=== PATIENT | female | born 1985 | race African-American/Black ===

== ENCOUNTER 2020-12-17 20:23 | Emergency (ER) | payer OTHER, SELFPAY ==
--- NOTE | ~2020-12-17 | CT_ITS ---
EXAMINATION: CT abdomen pelvis w con EXAM DATE: 12/17/2020 21:56 INDICATION: Abdominal pain. TECHNIQUE: Spiral CT of the abdomen and pelvis was performed following intravenous injection of 100 m L Omnipaque 350. Axial, coronal and sagittal images of the abdomen and pelvis were reviewed. The do se-length product (DLP) for this examination was 721.05 mGy-cm. The exposure was tailored according to patient size (auto mA exposure control), and iterative reconstruction (ASIR) was used as additiona l dose reduction technique. There is no prior study for comparison. FINDINGS: The liver, spleen, adrenal glands and pancreas are unremarkable. Gallbladder is unremarkab le. No biliary obstruction. Portal and splenic veins are patent. Kidneys enhance symmetrically. T here is no hydronephrosis. The uterus is retroverted and morphologically normal. The bladder is u nremarkable. There is no retroperitoneal or pelvic lymphadenopathy. The appendix is normal. The stomach and small bowel are unremarkable. There is expected amount of c olonic stool. No free intraperitoneal gas. The heart is normal in size. There are no pericardial or pleural effusions. The lung bases are unremarkable. Moderate L4-5 disc disease. IMPRESSION: No acute intra-abdominal findings. Reviewed, dictated and finalized at location A. ITE INSPECTOR
[2020-12-17 20:29] VITALS: BP 149/90; PULSE 95; RESP 18; TEMP 36.3; O2SAT 100
[2020-12-17 20:42] LABS: Basophils Percent Auto 0.3 % (0.2-1.2); Eosinophils Absolute Auto 0.1 K/mm3 (0-0.3); Hemoglobin 11.7 g/dL (12.0-15.0); Immature Granulocyte Absolute 0.02 K/mm3 (0.00-0.031); Immature Granulocyte Percent A 0.3 % (0-0.5); Lymphocytes Absolute Auto 4.24 K/mm3 (0.9-3.2); Lymphocytes Percent Auto 53.3 % (18.3-44.2); Mean Corpuscular HGB Conc 33.4 g/dl (32-36); Mean Corpuscular Hemoglobin 30.9 pg (26-34); Mean Corpuscular Volume 92.3 fl (80-100); Mean Platelet Volume 9.7 fl (7.4-10.4); Monocytes Absolute Auto 0.5 K/mm3 (0.1-0.6); Monocytes Percent Auto 5.8 % (2.6-8.5); Neutrophils Absolute Auto 3.1 K/mm3 (1.3-6.7); Neutrophils Percent Auto 39.3 % (45.5-73.1); Platelet Count Result 256 k/mm3 (150-375); Red Blood Count 3.79 M/mm3 (4.2-5.4)
[2020-12-17 20:51] LABS: Alanine Aminotransferase 12 U/L (4-35); Albumin Level 4.3 g/dL (3.5-5.1); Alkaline Phosphatase 68 U/L (38-126); Anion Gap 6 mmol/L (8-16); Aspartate Amino Transferase 25 U/L (14-36); Bilirubin,Total 0.4 mg/dL (0.2-1.3); Blood Urea Nitrogen 7 mg/dL (7-17); Calcium 9.6 mg/dL (8.4-10.2); Carbon Dioxide 30 mmol/L (22-30); Chloride 100 mmol/L (98-107); Estimated CRCL calculation 121 ml/min; Estimated Glomerular Filt Rate > 60; Glucose 99 mg/dL (65-110); Lipase 39 U/L (23-300); Potassium 3.6 mmol/L (3.4-5.0); Sodium 136 mmol/L (137-145)
[2020-12-17 21:05] LABS: Add Urine Microscopic? YES; Appearance Urine Clear (Clear); Bilirubin Urine Negative (Negative); Blood Urine Negative (Negative); Color Urine Straw (Yellow); Glucose Urine UA Negative (Negative); Ketones Urine Negative (Negative); Leukocyte Esterase Ur Negative LEU/UL (Negative); Nitrate Urine Negative (Negative); Protein Urine Negative (Negative); RBC Urine 0-2 /hpf (0-2); Specific Grav Ur 1.009 (1.001-1.035); Squamous Epithelial Cell Urine Rare /hpf (Few); Urobilinogen Urine Negative mg/dL (<2.0); WBC Urine 0-3 /hpf
[2020-12-17] MEDS: SODIUM CHLORIDE 0.9% IV 1,000 ML 999 ML IV CONT (21:17)
[2020-12-17] MEDS: ONDANSETRON INJ 4 MG/2 ML VIAL IV PUSH (21:18)
--- NOTE | 2020-12-17 22:24 | ED.GENADULT ---
HPI - General Adult General Chief complaint: Abdominal Pain Stated complaint: Abdominal pain Time Seen by Provider: 12/17/20 20:45 History of Present Illness HPI narrative: Patient is a 35-year-old female presents to emergency department with chief complaint of abdominal pain. Patient states for the last several days she has been having uncomfortable feeling in her right upper quadrant and also diffusely throughout her abdomen. Patient denies vomiting denies diarrhea reports has had no fevers with this reports that no prior surgical history on her abdomen. Patient reports no changes in her menstrual cycle. Patient reports symptoms are not worsened by anything nor they improved by anything. Related Data Allergies Allergy/AdvReac Type Severity Reaction Status Date / Time No Known Allergies Allergy Verified 12/17/20 20:50 Review of Systems Review of Systems: A 10 system review of systems was completed on the patient and is negative except for what is stated in the HPI. Nursing and ancillary documentation was reviewed. Exam Narrative: GENERAL: Well-appearing, well-nourished, and in no acute distress. HEAD: Normocephalic, atraumatic. EYES: PERRLA and EOMI. ENT: Nares clear, no rhinorrhea or epistaxis. Mucous membranes moist. NECK: Supple. CHEST: Clear to auscultation. No respiratory distress. HEART: Regular rate and rhythm. No murmur heard. Normal peripheral pulses. ABDOMEN: Soft, diffuse mild tenderness, nondistended, normal active bowel sounds. EXTREMITIES: Normal range of motion. No edema. SKIN: Warm, dry, no rash. NEURO: No focal deficits. Alert and oriented x3. PSYCH: Normal mood and affect. Course Vital Signs Vital signs: Vital Signs Temperature 36.3 C L 12/17/20 20:29 Pulse Rate 95 12/17/20 20:29 Respiratory Rate 18 12/17/20 20:29 Blood Pressure 149/90 H 12/17/20 20:29 Pulse Oximetry 100 12/17/20 20:29 Temperature 36.3 C L 12/17/20 20:29 Pulse Rate 95 12/17/20 20:29 Respiratory Rate 18 12/17/20 20:29 Blood Pressure 149/90 H 12/17/20 20:29 Pulse Oximetry 100 12/17/20 20:29 Medical Decision Making Vital Signs Vital Signs: Vital Signs Temperature 36.3 C L 12/17/20 20:29 Pulse Rate 95 12/17/20 20:29 Respiratory Rate 18 12/17/20 20:29 Blood Pressure 149/90 H 12/17/20 20:29 Pulse Oximetry 100 12/17/20 20:29 Temperature 36.3 C L 12/17/20 20:29 Pulse Rate 95 12/17/20 20:29 Respiratory Rate 18 12/17/20 20:29 Blood Pressure 149/90 H 12/17/20 20:29 Pulse Oximetry 100 12/17/20 20:29 Lab Data Result diagrams: 12/17/20 20:33 12/17/20 20:33 Labs: Lab Results 12/17/20 12/17/20 12/17/20 Range/Units 20:33 20:33 20:53 WBC 8.0 (4.5-10.0) K/mm3 RBC 3.79 L (4.2-5.4) M/mm3 Hgb 11.7 L (12.0-15.0) g/dL Hct 35.0 L (37.0-47.0) % MCV 92.3 (80-100) fl MCH 30.9 (26-34) pg MCHC 33.4 (32-36) g/dl RDW 12.0 (11.5-14.5) % Plt Count 256 (150-375) k/mm3 MPV 9.7 (7.4-10.4) fl Immature Gran % (Auto) 0.3 (0-0.5) % Neut % (Auto) 39.3 L (45.5-73.1) % Lymph % (Auto) 53.3 H (18.3-44.2) % [place] % (Auto) 5.8 (2.6-8.5) % Eos % (Auto) 1.0 (0-4.4) % Baso % (Auto) 0.3 (0.2-1.2) % Lymph # (Auto) 4.24 H (0.9-3.2) K/mm3 [place] # (Auto) 0.5 (0.1-0.6) K/mm3 Eos # (Auto) 0.1 (0-0.3) K/mm3 Baso # (Auto) 0.0 (0.0-0.1) K/mm3 Abs Immat Gran (auto) 0.02 (0.00-0.031) K/mm3 Absolute Neuts (auto) 3.1 (1.3-6.7) K/mm3 Absolute Nucleated RBC 0.0 (0.0-0.012) K/mm3 Nucleated RBC % 0.0 (0.0-0.2) % Sodium 136 L (137-145) mmol/L Potassium 3.6 (3.4-5.0) mmol/L Chloride 100 (98-107) mmol/L Carbon Dioxide 30 (22-30) mmol/L Anion Gap 6 L (8-16) mmol/L BUN 7 (7-17) mg/dL Creatinine 0.70 (0.7-1.0) mg/dL Estim Creat Clear Calc 121 ml/min Estimated GFR > 60 (59 - ) Glucose 99 (65-110) mg/dL Calcium
[2020-12-17 22:49] VITALS: BP 140/83; PULSE 88; RESP 18; O2SAT 98
== END 2020-12-17 22:50 | disposition home or self-care (01) ==
PROVIDERS: Emergency Medicine; Emergency Provider Emergency Medicine
DX: R10.84 Generalized abdominal pain (principal)
CPT/HCPCS: 36415; 74177; 80053; 81001; 81025; 83690; 85025; 96361; 96374; 99284; J2405; J7030; Q9967

== ENCOUNTER 2021-04-25 00:08 | Emergency (ER) | payer OTHER, SELFPAY ==
[2021-04-25] VITALS (16 sets, daily range): BP systolic 119–152; BP diastolic 78–100; PULSE 65–91; RESP 12–20; TEMP 36.2–36.4; O2SAT 99–100
--- NOTE | ~2021-04-25 | XR_ITS ---
EXAMINATION: XR chest 2V 04/25/2021 00:32 INDICATION: Tachycardia PROCEDURE: 2 view chest COMPARISON: No prior studies for comparison. FINDINGS: The lungs are clear. The cardiomediastinal silhouette is within normal limits. There are no pleural effusions. There is no pneumothorax suspected. IMPRESSION: 1: NO ACUTE CARDIOPULMONARY DISEASE. Reviewed, dictated and finalized at location A.
--- NOTE | 2021-04-25 00:14 | ECG_ITS ---
Measurements Intervals [place] Rate: 85 P: 56 FL: 146 QRS: 36 QRSD: 80 T: 1 QT: 332 QTc: 397 Interpretive Statements SINUS RHYTHM WITH SINUS ARRHYTHMIA POSSIBLE LEFT ATRIAL ENLARGEMENT [-0.1mV P-WAVE IN V1/V2] NONSPECIFIC T-WAVE ABNORMALITY ABNORMAL ECG NO PREVIOUS ECG AVAILABLE FOR COMPARISON Electronically Signed On 04-25-2021 9:05:31 CDT by Allan Metcalf M.D.
--- NOTE | 2021-04-25 00:29 | PC.NURSE ---
Patient taken to xray.
--- NOTE | 2021-04-25 00:32 | ED.ARRPALP ---
HPI - Arrhythmia/Palpitations General Chief Complaint: Arrhythmia/Palpitations Stated Complaint: pounding in chest x 1 week Time Seen by Provider: 04/25/21 00:13 Source: patient and RN notes reviewed Mode of arrival: ambulatory Limitations: no limitations History of Present Illness HPI narrative: 35-year-old female with no significant past medical history presents to the emergency department for evaluation of 2 days of heart palpitations. Patient states she is also had intermittent aching in her left arm. Patient states he is also had some intermittent headache. Patient states this does occur at rest. Patient denies anything that makes the pain worse. Patient denies any radiation of the pain to her neck or back. Patient states that she does have a history of high blood pressure when she goes to her primary care physician but patient is not currently being treated for hypertension. Patient did take Tylenol for a recent headache and states that has helped with the headache but not with the chest pressure. Patient denies any prior history of CO. Patient denies any prior history of PE or DVT. Patient denies any recent long car rides or plane flights. Patient states she is not currently on control or hormone replacement. Patient denies any lower extremity pain or swelling. Related Data Home Medications Medication Instructions Recorded Confirmed No Home Medications 04/25/21 04/25/21 Allergies Allergy/AdvReac Type Severity Reaction Status Date / Time No Known Allergies Allergy Verified 04/25/21 00:18 Review of Systems Review of Systems: CONSTITUTIONAL: Denies fever, chills, or sweats. EYES: Denies visual changes, redness, or discharge. ENT: Denies rhinorrhea, congestion, sore throat, or otalgia. CARDIOVASCULAR: Chest pressure, palpitations. RESPIRATORY: Denies cough or dyspnea. GASTROINTESTINAL: Denies abdominal pain, nausea, vomiting, or diarrhea. GENITOURINARY: Denies dysuria or hematuria. SKIN: Denies rash or itching. MUSCULOSKELETAL: Ache in her left arm NEUROLOGIC: Intermittent headache but denies any focal numbness or weakness Exam Narrative: APPEARANCE: Well appearing, no pain, no distress, well-nourished. HEAD: normocephalic, atraumatic. EYES: PERRLA/EOMI, conjunctivae clear. NOSE: Normal no drainage NECK: Supple. No adenopathy, no masses. RESPIRATORY: Airway patent, respirations nonlabored. Clear to auscultation bilaterally, no rales, rhonchi, wheezing. CARDIOVASCULAR: Regular rate and rhythm without murmurs rubs or gallops. No reproducible tenderness to palpation ABDOMINAL: Soft, nontender, nondistended, normal bowel sounds MUSCULOSKELETAL: Moves all extremities. Strength/ROM intact, No edema, No calf tenderness. NEURO: Alert. Cranial nerves II through XII intact. Good gait. Good coordination SKIN: Warm, dry. Normal Color Course Course Emergency Course: Patient was treated with 324 mg of aspirin p.o. Patient was also given sublingual nitro. This did help her blood pressure but did not change her chest pressure symptoms. Patient also did develop a subsequent headache from the nitro. Patient's blood pressure did remain improved for the rest of her ER visit after that single dose of nitro. Patient did x-ray that showed no acute cardiopulmonary abnormality. EKG showed normal sinus rhythm with no evidence of acute STEMI. Patient did have negative serial troponins. D-dimer was within normal limits. Patient and family were updated on the results of the work-up. Patient was advised to have close follow-up with her primary care physician in order to determine if she would require further outpatient cardiac testing, meds for hypertension, or a Holter monitor. Patient Liza updated on the reasons to return to the emergency room. All questions and concerns were addressed. Patient was well-appearing at time of discharge Vital Signs Vital signs: Vital Signs Temperature 97.1 F L 04/25/21 00:12 Pulse Rate 91
[2021-04-25 00:40] LABS: Basophils Percent Auto 0.3 % (0.2-1.2); Eosinophils Absolute Auto 0.1 K/mm3 (0-0.3); Eosinophils Percent Auto 1.2 % (0-4.4); Hematocrit 37.7 % (37.0-47.0); Hemoglobin 12.2 g/dL (12.0-15.0); Immature Granulocyte Absolute 0.02 K/mm3 (0.00-0.031); Immature Granulocyte Percent A 0.3 % (0-0.5); Lymphocytes Absolute Auto 3.31 K/mm3 (0.9-3.2); Lymphocytes Percent Auto 51.6 % (18.3-44.2); Mean Corpuscular HGB Conc 32.4 g/dl (32-36); Mean Corpuscular Hemoglobin 30.9 pg (26-34); Mean Corpuscular Volume 95.4 fl (80-100); Mean Platelet Volume 10.1 fl (7.4-10.4); Monocytes Absolute Auto 0.4 K/mm3 (0.1-0.6); Monocytes Percent Auto 5.5 % (2.6-8.5); Neutrophils Absolute Auto 2.6 K/mm3 (1.3-6.7); Neutrophils Percent Auto 41.1 % (45.5-73.1); Platelet Count Result 265 k/mm3 (150-375); Red Blood Count 3.95 M/mm3 (4.2-5.4); Red Cell Distribution Width 12.1 % (11.5-14.5); White Blood Count 6.4 K/mm3 (4.5-10.0)
[2021-04-25 00:48] LABS: D Dimer 0.33 ug/mL (<0.48)
[2021-04-25 00:56] LABS: Alanine Aminotransferase 14 U/L (4-35); Albumin Level 4.4 g/dL (3.5-5.1); Alkaline Phosphatase 78 U/L (38-126); Anion Gap 7 mmol/L (8-16); Aspartate Amino Transferase 34 U/L (14-36); Bilirubin,Total 0.3 mg/dL (0.2-1.3); Blood Urea Nitrogen 6 mg/dL (7-17); Calcium 8.8 mg/dL (8.4-10.2); Carbon Dioxide 25 mmol/L (22-30); Chloride 105 mmol/L (98-107); Estimated CRCL calculation 117 ml/min; Estimated Glomerular Filt Rate > 60; Glucose 108 mg/dL (65-110); Magnesium 1.8 mg/dL (1.6-2.3); Potassium 3.3 mmol/L (3.4-5.0); Sodium 137 mmol/L (137-145)
[2021-04-25] MEDS: NITROGLYCERIN SL 0.4 MG TABLET SUBLINGUAL (00:58)
[2021-04-25] MEDS: ASPIRIN 81 MG CHEWABLE TABLET 324 MG PO (00:58)
[2021-04-25 01:22] LABS: Troponin I < 0.012 ng/mL (0.000-0.034)
[2021-04-25 03:40] LABS: Troponin I < 0.012 ng/mL (0.000-0.034)
== END 2021-04-25 04:15 | disposition home or self-care (01) ==
PROVIDERS: Emergency Provider Emergency Medicine
DX: R07.9 Chest pain, unspecified (principal); R94.31 Abnormal electrocardiogram [ECG] [EKG]
CPT/HCPCS: 36415; 71046; 80053; 83735; 84443; 84484; 85025; 85380; 93005; 99284; A9270

== ENCOUNTER 2022-03-26 13:39 | Emergency (ER) | payer OTHER, SELFPAY ==
--- NOTE | ~2022-03-26 | XR_ITS ---
EXAMINATION: XR chest 2V Exam Date/Time: 03/26/2022 14:30 CYBER INCIDENT RESPONDER HISTORY: palpitations, SOB Comparison: 09/25/2021. RESULT: Lines, tubes, and devices: None. Lungs and pleura: Clear. Cardiomediastinal silhouette: Stable. Other: No acute osseous or upper abdominal finding. IMPRESSION: No acute cardiopulmonary process. Reviewed, dictated and finalized at location K. R INCIDENT RESPONDER
--- NOTE | 2022-03-26 13:41 | ECG_ITS ---
Measurements Intervals [place] Rate: 73 P: 52 GA: 164 QRS: 55 QRSD: 72 T: 38 QT: 375 QTc: 415 Interpretive Statements SINUS RHYTHM BASELINE ARTIFACT NONSPECIFIC T-WAVE ABNORMALITY BORDERLINE ECG COMPARED TO ECG 04/25/2021 00:18:20 NO SIGNIFICANT CHANGES Electronically Signed On 03-26-2022 14:59:03 GRILL ATTENDANT by Jose Maria Leigh M.D.
[2022-03-26 14:06] VITALS: BP 140/91; PULSE 79; RESP 19; TEMP 36.9; O2SAT 98
[2022-03-26 14:48] LABS: Basophils Percent Auto 0.4 % (0.2-1.2); Eosinophils Absolute Auto 0.1 K/mm3 (0-0.3); Eosinophils Percent Auto 1.2 % (0-4.4); Hematocrit 38.5 % (37.0-47.0); Hemoglobin 12.6 g/dL (12.0-15.0); Immature Granulocyte Absolute 0.01 K/mm3 (0.00-0.031); Immature Granulocyte Percent A 0.2 % (0-0.5); Lymphocytes Absolute Auto 2.26 K/mm3 (0.9-3.2); Lymphocytes Percent Auto 46.5 % (18.3-44.2); Mean Corpuscular HGB Conc 32.7 g/dl (32-36); Mean Corpuscular Hemoglobin 31.3 pg (26-34); Mean Corpuscular Volume 95.5 fl (80-100); Mean Platelet Volume 9.4 fl (7.4-10.4); Monocytes Absolute Auto 0.2 K/mm3 (0.1-0.6); Monocytes Percent Auto 4.7 % (2.6-8.5); Neutrophils Absolute Auto 2.3 K/mm3 (1.3-6.7); Platelet Count Result 267 k/mm3 (150-375); Red Blood Count 4.03 M/mm3 (4.2-5.4); White Blood Count 4.9 K/mm3 (4.5-10.0)
[2022-03-26 15:01] LABS: Alanine Aminotransferase 14 U/L (6-35); Albumin Level 4.6 g/dL (3.5-5.1); Alkaline Phosphatase 65 U/L (38-126); Anion Gap 4 mmol/L (8-16); Aspartate Amino Transferase 19 U/L (14-36); Bilirubin,Total 0.6 mg/dL (0.2-1.3); Blood Urea Nitrogen 8 mg/dL (7-17); Calcium 9.2 mg/dL (8.4-10.2); Carbon Dioxide 28 mmol/L (22-30); Chloride 105 mmol/L (98-107); Estimated CRCL calculation 109 ml/min; Estimated Glomerular Filt Rate > 60; Glucose 98 mg/dL (65-110); Potassium 3.6 mmol/L (3.4-5.0); Sodium 137 mmol/L (137-145)
[2022-03-26 16:38] LABS: Troponin I < 0.012 ng/mL (0.000-0.034)
[2022-03-26 16:54] VITALS: BP 121/76; PULSE 69; RESP 18; O2SAT 71
[2022-03-26 17:01] VITALS: O2SAT 100
[2022-03-26 17:23] LABS: Thyroid Stimulating Hormone 0.832 uIU/mL (0.465-4.680)
[2022-03-26 17:26] VITALS: PULSE 84
[2022-03-26 17:32] LABS: Appearance Urine Slightly Cloudy (Clear); Bilirubin Urine Negative (Negative); Blood Urine Trace-lysed (Negative); Color Urine Yellow (Yellow); Glucose Urine UA Negative (Negative); Ketones Urine Negative (Negative); Leukocyte Esterase Ur Negative LEU/UL (Negative); Nitrate Urine Negative (Negative); Protein Urine Negative (Negative); Specific Grav Ur 1.015 (1.001-1.035); Urobilinogen Urine 0.2 mg/dL (<2.0); pH Urine 6.5 (5.0-9.0)
[2022-03-26 17:35] LABS: Bacteria Urine 1+ /hpf; Mucus Urine Rare /lpf; RBC Urine 0-2 /hpf (0-2); Squamous Epithelial Cell Urine Moderate /hpf (Few)
[2022-03-26 17:46] LABS: D Dimer 0.31 ug/mL (<0.48)
[2022-03-26 17:46] LABS: Add Urine Microscopic? YES
--- NOTE | 2022-03-26 17:56 | ED.ARRPALP ---
HPI - Arrhythmia/Palpitations General Chief Complaint: Arrhythmia/Palpitations Stated Complaint: tremors and weird sensations in my chest Time Seen by Provider: 03/26/22 16:24 Source: patient Mode of arrival: ambulatory Limitations: no limitations History of Present Illness HPI narrative: Patient is 36 years old -[place] female had chest pain last night, dull aching subsequently patient started having lightheadedness, dizziness, trouble breathing, shaking and numbness of the hands and feet. History of migraine headache and anxiety. History of mild tricuspid regurgitation diagnosed by echo September 2021. Patient is scheduled for echo every 2 years. Currently patient feeling okay. Related Data Home Medications Medication Instructions Recorded Confirmed No Home Medications 04/25/21 04/25/21 Allergies Allergy/AdvReac Type Severity Reaction Status Date / Time No Known Allergies Allergy Verified 04/25/21 00:18 Review of Systems Review of Systems: All systems reviewed & are unremarkable except as noted in HPI and below Exam Narrative: General appearance: Well-developed, well-nourished, anxious Skin: Normal color Head: Normocephalic, nontraumatic Eyes: Clear conjunctiva ENT: Oropharynx normal, ears normal, nose normal Neck: Supple, nontender Chest and respiratory: Airway patent, no respiratory distress, no accessory muscle use Heart: Regular rate/rhythm Abdomen: Soft, nontender, no organomegaly, quiet bowel sounds Vascular: Normal peripheral pulses, normal capillary refill. Musculoskeletal: Normal range of motion, nontender back Neurologic: Alert and oriented ?3, [employer] is normal as tested, no gross motor deficit Course Course Emergency Course: Stable Reevaluation(s) Reevaluation #1: Patient laying resting in bed, little anxious worried about her heart Date: 03/26/22 Time: 18:05 Vital Signs Vital signs: Vital Signs Temperature 36.9 C 03/26/22 14:06 Pulse Rate 79 03/26/22 14:06 Respiratory Rate 03/26/22 14:06 Blood Pressure 140/91 H 03/26/22 14:06 Pulse Oximetry 98 03/26/22 14:06 Oxygen Delivery Room Air 03/26/22 14:06 Temperature 36.9 C 03/26/22 14:06 Pulse Rate 84 03/26/22 17:26 Respiratory Rate 18 03/26/22 16:54 Blood Pressure 121/76 03/26/22 16:54 Pulse Oximetry 100 03/26/22 17:01 Oxygen Delivery Room Air 03/26/22 14:06 MDM - Arrhythmia/Palpitations MDM Narrative Medical decision making narrative: Patient had dull aching chest pain last night, subsequently developed panic attack-like symptoms. Patient is concerned about the possibility of having cardiac arrest because one of her family had cardiac arrest at age 38. Patient is worried about the mild tricuspid valve regurgitation. Physical examination showed no acute abnormality except restlessness, Labs, EKG, chest x-ray, TSH ordered. Work-up showed no acute abnormality to explain patient condition. Assurance, and recommendation to follow-up with her cardiology as needed been recommended. the pt was discharged to home.the pt,s condition upon discharge was fair,education was provided to the pt in reference to the final impression,discharge study results,treatment,prognosis and need for follow up . Differential Diagnosis Differential diagnosis: Likely palpitations and anxiety Lab Data 03/26/22 14:42 03/26/22 14:42 Labs: Lab Results 03/26/22 03/26/22 03/26/22 Range/Units 14:42 14:42 14:42 WBC 4.9 (4.5-10.0) K/mm3 RBC 4.03 L (4.2-5.4) M/mm3 Hgb 12.6 (12.0-15.0) g/dL Hct 38.5 (37.0-47.0) % MCV 95.5 (80-100) fl MCH 31.3 (26-34) pg MCHC 32.7 (32-36) g
== END 2022-03-26 18:17 | disposition home or self-care (01) ==
PROVIDERS: Emergency Medicine; Emergency Provider Emergency Medicine
DX: R00.2 Palpitations (principal); F41.9 Anxiety disorder, unspecified; I07.1 Rheumatic tricuspid insufficiency
CPT/HCPCS: 36415; 71046; 80053; 81001; 84443; 84484; 85025; 85380; 93005; 99284